=== PATIENT | female | born 1985 | race Caucasian/White ===

== ENCOUNTER 2020-10-12 21:18 | Emergency (ER) | payer OTHER, BC, SELFPAY ==
[2020-10-12 21:23] VITALS: BP 163/76; PULSE 115; RESP 22; TEMP 36.7; O2SAT 95; BMI 48.9
--- NOTE | 2020-10-12 21:23 | ECG_ITS ---
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: : 1985 Requested By: Lester Reese Order Number: [id number] Allison MD: BRIANDA THOMPSON Measurements Intervals [place] Rate: 108 P: 37 VA: 142 QRS: -13 QRSD: 90 T: -3 QT: 320 QTc: 429 Interpretive Statements SINUS TACHYCARDIA LOW QRS VOLTAGE IN PRECORDIAL LEADS [QRS DEFLECTION < 1.0 mV IN CHEST LEADS] MODERATE VOLTAGE CRITERIA FOR LVH, CONSIDER NORMAL VARIANT [MEETS CRITERIA IN ONE OF: R(aVL), S(V1), R(V5), R(V5/V6)+S(V1)] POSSIBLE ANTERIOR MYOCARDIAL INFARCTION [30 ms Q WAVE IN V3/V4, OR R < 0.2 mV IN V4], OF INDETERMINATE AGE No previous ECG available for comparison Electronically Signed On 10-13-2020 20:14:04 CDT by BRIANDA THOMPSON [id number] f
[2020-10-12 21:30] VITALS: BP 149/67; PULSE 119; RESP 18; O2SAT 97
[2020-10-12 22:00] VITALS: BP 141/67; PULSE 109; RESP 18; O2SAT 95
--- NOTE | 2020-10-12 22:29 | W.ED.CHESTPA ---
HPI - Chest Pain General: Chief Complaint: Chest Pain Stated Complaint: PAINS IN CHEST Time Seen by Provider: 10/12/20 22:29 History of Present Illness: HPI narrative: Patient comes in tonight with complaints of chest discomfort starting about 8:00. Patient reports that is lasted about 30 minutes. Patient comes in at this time due to concern that may be related to heart issues. Patient denies any problems with her heart. Patient continues to have her gallbladder. Patient appears well. Patient appears in no acute distress. Patient reports she does have a history of low potassium. Review of Systems General: Reports: 10 or more systems reviewed and unremarkable except in HPI and below Card: Reports: chest pain [facility] ED Female Reproductive History: Date of last menstrual period: 10/10/20 Physical Exam Const: COMMON NORMALS: no acute distress and patient oriented x3 GENERAL APPEARANCE: cooperative HENMT: COMMON NORMALS: normocephalic and Normal external nose present HEAD & SCALP: normal to inspection and normocephalic NOSE: Normal external nose present MOUTH: Normal oral and palatal mucosa present THROAT: posterior oropharynx normal Eye: GENERAL EYE: appearance normal, both eyes and all related structures Neck/C-Spine: COMMON NORMALS: full ROM Chest: COMMONS NORMALS: normal inspection of the chest Resp: COMMON NORMALS: normal respiratory effort EFFORT & INSPECTION: Yes able to speak in complete sentences Cardio: COMMON NORMALS: regular rate and regular rhythm RATE: regular rate RHYTHM: regular rhythm GI: COMMON NORMALS: non-tender : COMMON NORMALS: Yes no CVA tenderness BLADDER/KIDNEY EXAM: Yes no CVA tenderness Back/Pelvis: COMMON NORMALS: no CVA tenderness and thoracic and lumbar spine normal to inspection Extremity: COMMON NORMALS: normal to inspection Neuro: COMMON NORMALS: patient oriented x3 and moves all extremities Psych: COMMON NORMALS: mental status grossly normal and cooperative Skin: COMMON NORMALS: no rashes or lesions noted GENERAL SKIN EXAM: no rashes or lesions noted Course Vital Signs: Vital signs: Vital Signs Temperature 98.1 F 10/12/20 21:23 Pulse Rate 89 10/12/20 23:00 Respiratory Rate 18 10/12/20 23:00 Blood Pressure 115/78 10/12/20 23:00 Pulse Oximetry 96 10/12/20 23:00 MDM - Chest Pain MDM Narrative: Medical decision making narrative: 35-year-old female patient comes in today with chest discomfort on the right side radiating to her back. Patient reports that she has had a history of low potassium causing cramps, patient is also worried that it may be something else going on such as her gallbladder or other heart issues. On exam respirations are even lungs are clear to auscultation. Skin is warm and dry. Vital signs are normal except for some elevation in pulse and respirations. Differential diagnosis includes not limited to ACS, PE, hypokalemia, cholecystitis. CBC was normal, CMP did note some potassium at 2.9 otherwise normal liver enzymes. Troponin and D-dimer both negative. EKG shows some sinus tachycardia. Reviewed exam with patient recommended treatment for her hyperkalemia. Patient was given 40 mEq of potassium in the ER and will be continued on 20 mEq potassium twice a day. Recommended follow-up with primary care or specialist for refills. Patient reported understanding agreed to plan. Patient had previously been on potassium chloride 10 mg 4 times a day. Lab Data: Labs: Lab Results 10/12/20 10/12/20 10/12/20 Range/Units 22:45 22:45 22:45 WBC 10.7 H (4.0-10.0) 10^3/ uL RBC 4.73 (4.1-5.3) 10^6/u L Hgb 12.7 (11.5-15.3) g/dL Hct 39.4 (37.0-47.0) % MCV 83.3 (81-99) fL MCH 26.8 L (28.0-34.0) pg MCHC 32.2 (30.0-36.0) g/dL RDW 14.1 (12.1-15.1) % Plt Count 392 (130-400) 10^3/c mm MPV 11.5 H (7.4-10.4) fL Neut % (Auto) 61.9 % Lymph % (Auto) 28.2 % [place] % (Auto) 7.3 % Eos % (Auto) 1.7 % Baso % (Auto) 0.5 % Neut # (Auto) 6.63 (1.8-7.7) 10^3/u L Lymph # (Auto) 3.0 (0.8-4.8) 10^3/u L [place] # (Auto) 0.8 (0.2-0.9) 10^3/u L Eos # (Auto) 0.2 (0.0-0.8) 10^3/u L Baso # (Auto) 0.1 (0.0-0.1) 10^3/u L Nucleated RBC % (a uto) 0 % Nucleated RBCs # 0.0 /100WBC D-Dimer (0-0.59) ug/mIFE U Sodium 137 (136-145) mmol/L Potassium 2.9 L (3.5-5.1) mmol/L Chloride 93 L (98-107) mmol/L Carbon Dioxide 32 H (22-29) mmol/L Anion Gap 14.9 (5-19) BUN 11 (6-20) mg/dL Creatinine 0.6 (0.5-0.9) mg/dL GFR Calculation 115.1 (90-130) mL/min Glucose 108 (65-115) mg/dL Calculated Osmolal ity 284 L (285-295) mOsm/k g Calcium 8.7 (8.5-10.5) mg/dL Total Bilirubin 0.4 (0.15-1.2) mg/dL AST 13 (0-32) U/L ALT 13 (0-33) U/L Alkaline Phosphata se 51 (35-105) IU/L Troponin T Baselin e 6 (0-10) ng/L Total Protein 7.6 (6.6-8.7) g/dL Albumin 3.9 (3.5-5.2) g/dL Globulin 3.7 (1.3-4.6) g/dL HCG, Qual (Negative) Urine Color (Yellow) Urine Appearance (CLEAR) Urine pH (5-7) Ur Specific Gravit y (1.005-1.030) Urine Protein (Negative) Urine Glucose (UA) (Normal) Urine Ketones (Negative) Urine Blood (Negative) Urine Nitrate (Negative) Urine Bilirubin (Negative) Urine Urobilinogen (Negative) mg/dL Ur Leukocyte Kandis ase (Negative) Urine RBC (0-2) /hpf Urine WBC (0-5) /hpf Ur Squamous Epith Cells (0-5) /hpf Amorphous Sediment Urine Bacteria (NONE) /hpf 10/12/20 10/12/20 10/12/20 Range/Units 22:45 22:45 22:45 WBC (4.0-10.0) 10^3/ uL RBC (4.1-5.3) 10^6/u L Hgb (11.5-15.3) g/dL Hct (37.0-47.0) % MCV (81-99) fL MCH (28.0-34.0) pg MCHC (30.0-36.0) g/dL RDW (12.1-15.1) % Plt Count (130-400) 10^3/c mm MPV (7.4-10.4) fL Neut % (Auto) % Lymph % (Auto) % [place] % (Auto) % Eos % (Auto) % Baso % (Auto) % Neut # (Auto) (1.8-7.7) 10^3/u L Lymph # (Auto) (0.8-4.8) 10^3/u L [place] # (Auto) (0.2-0.9) 10^3/u L Eos # (Auto) (0.0-0.8) 10^3/u L Baso # (Auto) (0.0-0.1) 10^3/u L Nucleated RBC % (a uto) % Nucleated RBCs # /100WBC D-Dimer <= 0.27 (0-0.59) ug/mIFE U Sodium (136-145) mmol/L Potassium (3.5-5.1) mmol/L Chloride (98-107) mmol/L Carbon Dioxide (22-29) mmol/L Anion Gap (5-19) BUN (6-20) mg/dL Creatinine (0.5-0.9) mg/dL GFR Calculation (90-130) mL/min Glucose (65-115) mg/dL Calculated Osmolal ity (285-295) mOsm/k g Calcium (8.5-10.5) mg/dL Total Bilirubin (0.15-1.2) mg/dL AST (0-32) U/L ALT (0-33) U/L Alkaline Phosphata se (35-105) IU/L Troponin T Baselin e (0-10) ng/L Total Protein (6.6-8.7) g/dL Albumin (3.5-5.2) g/dL Globulin (1.3-4.6) g/dL HCG, Qual Negative (Negative) Urine Color Yellow (Yellow) Urine Appearance Clear (CLEAR) Urine pH 7 (5-7) Ur Specific Gravit y 1.015 (1.005-1.030) Urine Protein Trace (Negative) Urine Glucose (UA) Norm (Normal) Urine Ketones Negative (Negative) Urine Blood 2+ H (Negative) Urine Nitrate Negative (Negative) Urine Bilirubin Neg (Negative) Urine Urobilinogen Norm (Negative) mg/dL Ur Leukocyte Kandis ase Negative (Negative) Urine RBC 0-4 H (0-2) /hpf Urine WBC 0-4 H (0-5) /hpf Ur Squamous Epith Cells 0-4 H (0-5) /hpf Amorphous Sediment Not Reportable Urine Bacteria Trace (NONE) /hpf EKG Data^: EKG 1: Attestation: I personally reviewed and interpreted this EKG as follows: (2129, EKG shows a sinus tachycardia. No ST elevation or ectopy is noted. Computer reads low QRS, moderate voltage criteria for LVH, possible anterior LA. No prior EKG at this time is available for comparison.) Discharge Plan Discharge Patient Disposition: Home Clinical Impression: Hypokalemia, Atypical chest pain Condition: Stable Prescriptions: New potassium chloride 20 mEq tablet,ER particles/crystals 20 meq PO BID Qty: 60 RF: 2 Discharge Orders: Discharge ED (Routine); Ordered 10/12/20 Ordered By: Lester Greenberg Referrals: Ayse Hilton MD [Primary Care Provider] - Discharge Diet: Usual diet Discharge Activity: Increase activity as tolerated Patient Instructions: Hypokalemia (ED), Opioid Safety Activity Restrictions/Additional Instructions: Healthy diet and exercise. Follow-up with primary care. Return to the emergency department for new concerns. Coding Level of Care Code ED Bobbin Sorter for Chg Fwd Exam Comprehensive
[2020-10-12 22:30] VITALS: BP 135/99; PULSE 95; RESP 15; O2SAT 95
[2020-10-12 22:59] LABS: Basophils # 0.1 10^3/uL (0.0-0.1); Basophils % 0.5 %; Eosinophils # 0.2 10^3/uL (0.0-0.8); Eosinophils % 1.7 %; Hematocrit 39.4 % (37.0-47.0); Hemoglobin 12.7 g/dL (11.5-15.3); Lymphocytes % 28.2 %; Mean Corpuscular HGB Conc 32.2 g/dL (30.0-36.0); Mean Corpuscular Hemoglobin 26.8 pg (28.0-34.0); Mean Corpuscular Volume 83.3 fL (81-99); Mean Platelet Volume 11.5 fL (7.4-10.4); Monocytes # 0.8 10^3/uL (0.2-0.9); Monocytes % 7.3 %; Neutrophils # 6.63 10^3/uL (1.8-7.7); Neutrophils % 61.9 %; Nucleated Red Blood Cells % 0 %; Platelet Count 392 10^3/cmm (130-400); Red Blood Count 4.73 10^6/uL (4.1-5.3); Red Cell Distribution Width 14.1 % (12.1-15.1); White Blood Count 10.7 10^3/uL (4.0-10.0)
[2020-10-12 23:00] VITALS: BP 115/78; PULSE 89; RESP 18; O2SAT 96
[2020-10-12 23:07] LABS: D Dimer <= 0.27 ug/mIFEU (0-0.59)
[2020-10-12 23:16] LABS: HCG, Serum Qual Negative (Negative)
[2020-10-12 23:17] LABS: Add Urine Microscopic? YES; Bilirubin Urine Neg (Negative); Blood Urine 2+ (Negative); Glucose Urine UA Norm (Normal); Ketones Urine Negative (Negative); Leukocyte Esterase Urine Negative (Negative); Nitrate Urine Negative (Negative); Protein Urine Trace (Negative); Specific Gravity, Urine 1.015 (1.005-1.030); Urine Appearance Clear (CLEAR); Urine Color Yellow (Yellow); Urobilinogen Urine Norm (Negative); pH Urine 7 (5-7)
[2020-10-12 23:18] LABS: Add Urine Culture? No; Bacteria Urine TRACE /hpf; RBC Urine 0-4 /hpf (0-2); Squamous Epithelial Cell Urine 0-4 /hpf (0-5); WBC Urine 0-4 /hpf (0-5)
[2020-10-12 23:21] LABS: Troponin(5th) Baseline 6 ng/L (0-10)
[2020-10-12 23:22] LABS: Alanine Aminotransferase 13 U/L (0-33); Albumin Level 3.9 g/dL (3.5-5.2); Alkaline Phosphatase 51 IU/L (35-105); Anion Gap 14.9 (5-19); Aspartate Amino Transferase 13 U/L (0-32); Blood Urea Nitrogen 11 mg/dL (6-20); Calcium 8.7 mg/dL (8.5-10.5); Carbon Dioxide 32 mmol/L (22-29); Chloride 93 mmol/L (98-107); Globulin 3.7 g/dL (1.3-4.6); Glomerular Filtration Rate 115.1 mL/min (90-130); Glucose 108 mg/dL (65-115); Osmolality Calculated 284 mOsm/kg (285-295); Sodium 137 mmol/L (136-145); Total Bilirubin 0.4 mg/dL (0.15-1.2); Total Protein 7.6 g/dL (6.6-8.7)
[2020-10-12 23:26] LABS: Potassium 2.9 mmol/L (3.5-5.1)
[2020-10-12 23:45] VITALS: BP 119/83; PULSE 92; RESP 18; O2SAT 99
[2020-10-12] MEDS: potassium chloride ER 20 mEq Tablet 40 MEQ PO (23:45)
== END 2020-10-12 23:48 | disposition home or self-care (01) ==
PROVIDERS: Emergency Provider Nurse Practitioner Family; PCP Family Medicine
DX: E87.5 Hyperkalemia (principal); R07.89 Other chest pain
CPT/HCPCS: 80053; 81001; 84484; 84703; 85025; 85378; 93005; 99283

== ENCOUNTER 2021-04-07 | Emergency (ER) | payer OTHER, BC, SELFPAY ==
[2021-04-07 00:21] VITALS: BP 152/81; PULSE 108; RESP 18; TEMP 36.7; O2SAT 97; BMI 51.6
[2021-04-07 02:27] LABS: Add Urine Microscopic? YES; Bilirubin Urine 1+ (Negative); Blood Urine Neg (Negative); Glucose Urine UA Norm (Normal); Ketones Urine Negative (Negative); Leukocyte Esterase Urine Trace (Negative); Nitrate Urine Negative (Negative); Protein Urine Trace (Negative); Urine Appearance SL Hazy (CLEAR); Urine Color Yellow (Yellow); Urobilinogen Urine 4 mg/dL (Negative); pH Urine 7 (5-7)
[2021-04-07 02:37] LABS: Add Urine Culture? No; Bacteria Urine 2+ /hpf; Mucus Urine 2+ /hpf; RBC Urine 0-4 /hpf (0-2); Squamous Epithelial Cell Urine 15-25 /hpf (0-5); WBC Urine 0-4 /hpf (0-5)
--- NOTE | 2021-04-07 05:04 | ECG_ITS ---
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 Measurements Intervals [place] Rate: 95 P: 48 WI: 147 QRS: -2 QRSD: 95 T: 8 QT: 344 QTc: 433 Interpretive Statements SINUS RHYTHM MODERATE VOLTAGE CRITERIA FOR LVH, CONSIDER NORMAL VARIANT [MEETS CRITERIA IN ONE OF: R(aVL), S(V1), R(V5), R(V5/V6)+S(V1)] POSSIBLE ANTERIOR MYOCARDIAL INFARCTION , PROBABLY OLD [30 ms Q WAVE IN V3/V4, OR R < 0.2 mV IN V4] Compared to ECG 10/12/2020 21:29:55 Sinus tachycardia no longer present Myocardial infarct finding still present Electronically Signed On 04-07-2021 23:53:10 CROP RANCH HAND by Marie Joe M.D. [id number]
[2021-04-07 05:05] VITALS: BP 107/60; PULSE 88; RESP 16; O2SAT 98
[2021-04-07] MEDS: sodium chloride 0.9% 1,000 ML 999 ML IV ×2 (05:10→07:05)
[2021-04-07] MEDS: ondansetron 2 mg/ML SDV 2 mL 4 MG IVP (05:10)
[2021-04-07 05:29] LABS: Albumin Level 3.7 g/dL (3.5-5.2); Alkaline Phosphatase 55 IU/L (35-105); Blood Urea Nitrogen 12 mg/dL (6-20); Calcium 7.9 mg/dL (8.5-10.5); Carbon Dioxide 26 mmol/L (22-29); Chloride 92 mmol/L (98-107); Globulin 3.2 g/dL (1.3-4.6); Glomerular Filtration Rate 141.2 mL/min (90-130); Glucose 107 mg/dL (65-115); Lipase 15 U/L (13-60); Osmolality Calculated 276 mOsm/kg (285-295); Sodium 133 mmol/L (136-145); Total Bilirubin 0.7 mg/dL (0.15-1.2); Total Protein 6.9 g/dL (6.6-8.7)
[2021-04-07 05:30] LABS: Anion Gap 18.8 (5-19)
[2021-04-07 05:31] LABS: Alanine Aminotransferase 11 U/L (0-33); Aspartate Amino Transferase 27 U/L (0-32); Potassium 3.8 mmol/L (3.5-5.1)
--- NOTE | 2021-04-07 05:32 | W.ED.NAVMDI ---
HPI - Nausea/Vomiting/Diarrhea General: Chief complaint: Nausea/Vomiting/Diarrhea Stated complaint: Passed Out\N\Diahrea Time Seen by Provider: 04/07/21 04:47 History of Present Illness: HPI Narrative: 36-year-old female who says that yesterday, after eating fast food, she began to have diarrhea. She vomited a couple times as well. She has had persistent nausea with cramping belly pain. With one of her episodes of diarrhea, she passed out at home. says she was out for several seconds. She does not remember. She denies significant chest pain. She has had problems with low potassium in the past MD elicited complaint: nausea, vomiting, diarrhea and abdominal pain Pertinent past history: other Onset (ago): hour(s) Description of vomiting: food contents and watery Description of diarrhea: watery Associated nausea: Yes Associated abdominal pain: Yes Location of pain: Diffuse Radiation: diffuse Pain consistency: intermittent Quality: cramping Exacerbating factors: none Relieving factors: none Context: possible food poisoning (Possibly) Associated symtoms: Reports nausea and syncope; Denies altered mental status, change in vision, chest pain, fevers/chills, rash or short of breath Review of Systems Const: Denies: fever(s) or chills Eyes: Denies: change in vision Card: Reports: syncope; Denies: chest pain GI: Reports: nausea [facility] ED Female Reproductive History: Date of last menstrual period: 03/19/21 Physical Exam Const: EXAM LIMITATIONS: no altered mental status GENERAL APPEARANCE: cooperative and ill appearing (Mildly) HENMT: COMMON NORMALS: normocephalic HEAD & SCALP: normocephalic Eye: COMMON NORMALS: Equal, round and reactive pupils present and EOMs intact bilaterally PUPIL: Yes Equal, round and reactive pupils present Chest: COMMONS NORMALS: normal inspection of the chest Resp: COMMON NORMALS: normal respiratory effort, No use of accessory muscles and clear to auscultation bilaterally AUSCULTATION: clear to auscultation bilaterally Cardio: COMMON NORMALS: regular rate and regular rhythm RATE: regular rate RHYTHM: regular rhythm GI: COMMON NORMALS: Normal to inspection, nondistended, normoactive bowel sounds present Course Vital Signs: Vital signs: Vital Signs Temperature 98.1 F 04/07/21 00:21 Pulse Rate 88 04/07/21 05:05 Respiratory Rate 16 04/07/21 05:05 Blood Pressure 107/60 04/07/21 05:05 Pulse Oximetry 98 04/07/21 05:05 MDM - Nausea/Vomiting/Diarrhea MDM Narrative Medical decision making narrative: Lena has gastroenteritis type symptoms. WBC of 5.8. Sodium 133. Other labs benign here in she is positive by PCR for COVID-19. she received IV fluid bolus, antiemetics. She'll be allowed home. Since her PCR turned positive, would consider monoclonal antibody as an outpatient. Lab Data Result diagrams: 04/07/21 05:30 04/07/21 05:00 Labs: Lab Results 04/07/21 04/07/21 04/07/21 02:10 05:00 05:00 WBC Cancelled Corrected WBC Cancelled RBC Cancelled Hgb Cancelled Hct Cancelled MCV Cancelled MCH Cancelled MCHC Cancelled RDW Cancelled Plt Count Cancelled MPV Cancelled Gran % Cancelled Neut % (Auto) Cancelled Lymph % (Auto) Cancelled [place] % (Auto) Cancelled Eos % (Auto) Cancelled Baso % (Auto) Cancelled Neut # (Auto) Cancelled Lymph # (Auto) Cancelled [place] # (Auto) Cancelled Eos # (Auto) Cancelled Baso # (Auto) Cancelled Absolute Gran (auto) Cancelled Nucleated RBC % (auto) Cancelled Nucleated RBCs # Cancelled Sodium 133 mmol/L L mmol/L (136-145) Potassium 3.8 mmol/L mmol/L (3.5-5.1) Chloride 92 mmol/L L mmol/L (98-107) Carbon Dioxide 26 mmol/L mmol/L (22-29) Anion Gap 18.8 (5-19) BUN 12 mg/dL mg/dL (6-20) Creatinine 0.5 mg/dL mg/dL (0.5-0.9) GFR Calculation 141.2 mL/min H mL/min (90-130) Glucose 107 mg/dL mg/dL (65-115) Calculated Osmolality 276 mOsm/kg L mOsm/kg (285-295) Calcium 7.9 mg/dL L mg/dL (8.5-10.5) Total Bilirubin 0.7 mg/dL mg/dL (0.15-1.2) AST 27 U/L U/L (0-32) ALT 11 U/L U/L (0-33) Alkaline Phosphatase 55 IU/L IU/L (35-105) Troponin T Gen 5 ng/L Total Protein 6.9 g/dL g/dL (6.6-8.7) Albumin 3.7 g/dL g/dL (3.5-5.2) Globulin 3.2 g/dL g/dL (1.3-4.6) Lipase 15 U/L U/L (13-60) HCG, Qual Urine Color Yellow (Yellow) Urine Appearance Sl hazy (CLEAR) Urine pH 7 (5-7) Ur Specific [place] 1.010 (1.005-1.030) Urine Protein Trace (Negative) Urine Glucose (UA) Norm (Normal) Urine Ketones Negative (Negative) Urine Blood Neg (Negative) Urine Nitrate Negative (Negative) Urine Bilirubin 1+ H (Negative) Urine Urobilinogen 4 mg/dL H mg/dL (Negative) Ur Leukocyte Esterase Trace H (Negative) Urine RBC 0-4 /hpf H /hpf (0-2) Urine WBC 0-4 /hpf H /hpf (0-5) Ur Squamous Epith Cells 15-25 /hpf H /hpf (0-5) Triple Phos Crystals 5-10 /hpf H /hpf Amorphous Sediment Not Reportable Urine Bacteria 2+ /hpf H /hpf (NONE) Urine Mucus 2+ /hpf /hpf Coronavirus 229E (PCR) SARS-CoV-2 (PCR) 04/07/21 04/07/21 04/07/21 05:00 05:15 05:30 WBC Corrected WBC RBC Hgb Hct MCV MCH MCHC RDW Plt Count MPV Gran % Neut % (Auto) Lymph % (Auto) [place] % (Auto) Eos % (Auto) Baso % (Auto) Neut # (Auto) Lymph # (Auto) [place] # (Auto) Eos # (Auto) Baso # (Auto) Absolute Gran (auto) Nucleated RBC % (auto) Nucleated RBCs # Sodium Potassium Chloride Carbon Dioxide Anion Gap BUN Creatinine GFR Calculation Glucose Calculated Osmolality Calcium Total Bilirubin AST ALT Alkaline Phosphatase Troponin T Gen 5 ng/L 6 ng/L ng/L (0-10) Total Protein Albumin Globulin Lipase HCG, Qual Negative (Negative) Urine Color Urine Appearance Urine pH Ur Specific [place] Urine Protein Urine Glucose (UA) Urine Ketones Urine Blood Urine Nitrate Urine Bilirubin Urine Urobilinogen Ur Leukocyte Esterase Urine RBC Urine WBC Ur Squamous Epith Cells Triple Phos Crystals Amorphous Sediment Urine Bacteria Urine Mucus Coronavirus 229E (PCR) Not detected (NOT DETECT) SARS-CoV-2 (PCR) Detected A (NOT DETECT) 04/07/21 05:30 WBC 5.8 10^3/uL 10^3/uL (4.0-10.0) Corrected WBC RBC 4.41 10^6/uL 10^6/uL (4.1-5.3) Hgb 12.0 g/dL g/dL (11.5-15.3) Hct 36.0 % L % (37.0-47.0) MCV 81.6 fl fl (81-99) MCH 27.2 pg L pg (28.0-34.0) MCHC 33.3 g/dL g/dL (30.0-36.0) RDW 14.3 % % (12.1-15.1) Plt Count 294 10^3/cmm 10^3/cmm (130-400) MPV 10.8 fL H fL (7.4-10.4) Gran % Neut % (Auto) 81.3 % % Lymph % (Auto) 13.1 % % [place] % (Auto) 4.5 % % Eos % (Auto) 0.3 % % Baso % (Auto) 0.3 % % Neut # (Auto) 4.73 10^3/uL 10^3/uL (1.8-7.7) Lymph # (Auto) 0.8 10^3/uL 10^3/uL (0.8-4.8) [place] # (Auto) 0.3 10^3/uL 10^3/uL (0.2-0.9) Eos # (Auto) 0.0 10^3/uL 10^3/uL (0.0-0.8) Baso # (Auto) 0.0 10^3/uL 10^3/uL (0.0-0.1) Absolute Gran (auto) Nucleated RBC % (auto) 0 % % Nucleated RBCs # 0.0 /100WBC /100WBC Sodium Potassium Chloride Carbon Dioxide Anion Gap BUN Creatinine GFR Calculation Glucose Calculated Osmolality Calcium Total Bilirubin AST ALT Alkaline Phosphatase Troponin T Gen 5 ng/L Total Protein Albumin Globulin Lipase HCG, Qual Urine Color Urine Appearance Urine pH Ur Specific [place] Urine Protein Urine Glucose (UA) Urine Ketones Urine Blood Urine Nitrate Urine Bilirubin Urine Urobilinogen Ur Leukocyte Esterase Urine RBC Urine WBC Ur Squamous Epith Cells Triple Phos Crystals Amorphous Sediment Urine Bacteria Urine Mucus Coronavirus 229E (PCR) SARS-CoV-2 (PCR) Discharge Plan Discharge Patient Disposition: Home Clinical Impression: Gastroenteritis Condition: Stable Prescriptions: New Zofran 4 mg tablet 4 mg PO Q6H PRN (Reason: nausea and vomiting) Qty: 10 0RF No Action potassium chloride 20 mEq tablet,ER particles/crystals 20 meq PO BID Qty: 60 2RF Discharge Orders: Discharge ED (Routine); Ordered 04/07/21 Ordered By: Dakota Luna Other Ambulatory Orders: Request for MCA (Routine) Timeframe: 1 Day Facility: [facility] - Location: Outpatient [facility] Services Ordered By: Dakota Luna Referrals: Ayse Hilton MD [Primary Care Provider] - 1-3 days Discharge Diet: Advance as tolerated Patient Instructions: Gastroenteritis (ED) Activity Restrictions/Additional Instructions: Plenty of liquids and rest. Your COVID-19 test will be resulted within a couple of hours. You will get a call if it is positive. Return for worsening vomiting or diarrhea despite treatment, fever greater than 100, shortness of breath, any other concerning symptoms. Coding Level of Care Code ED Clay Transporter for Chg Fwd Exam Detailed
[2021-04-07 05:35] LABS: Basophils % 0.3 %; Eosinophils % 0.3 %; Lymphocytes # 0.8 10^3/uL (0.8-4.8); Lymphocytes % 13.1 %; Mean Corpuscular HGB Conc 33.3 g/dL (30.0-36.0); Mean Corpuscular Hemoglobin 27.2 pg (28.0-34.0); Mean Corpuscular Volume 81.6 fl (81-99); Mean Platelet Volume 10.8 fL (7.4-10.4); Monocytes # 0.3 10^3/uL (0.2-0.9); Monocytes % 4.5 %; Neutrophils # 4.73 10^3/uL (1.8-7.7); Neutrophils % 81.3 %; Nucleated Red Blood Cells % 0 %; Platelet Count 294 10^3/cmm (130-400); Red Blood Count 4.41 10^6/uL (4.1-5.3); Red Cell Distribution Width 14.3 % (12.1-15.1); White Blood Count 5.8 10^3/uL (4.0-10.0)
[2021-04-07 05:43] LABS: Troponin T (5th) Once 6 ng/L (0-10)
[2021-04-07 05:46] LABS: HCG, Serum Qual Negative (Negative)
[2021-04-07 08:08] LABS: Adenovirus Not Detected (NOT DETECT); Chlamydia Pneumoniae Not Detected (NOT DETECT); Coronavirus 229E,HKU1,NL63,OC4 Not Detected (NOT DETECT); Human Metapneumovirus Not Detected (NOT DETECT); Human Rhinovirus/Enterovirus Not Detected (NOT DETECT); Influenza A Not Detected (NOT DETECT); Influenza A H1 Not Detected (NOT DETECT); Influenza A H1-2009 Not Detected (NOT DETECT); Influenza A H3 Not Detected (NOT DETECT); Influenza B Not Detected (NOT DETECT); Mycoplasma Pneumoniae Not Detected (NOT DETECT); Parainfluenza Virus Type 1 Not Detected (NOT DETECT); Parainfluenza Virus Type 2 Not Detected (NOT DETECT); Parainfluenza Virus Type 3 Not Detected (NOT DETECT); Parainfluenza Virus Type 4 Not Detected (NOT DETECT); Respiratory Syncytial Virus A Not Detected (NOT DETECT); Respiratory Syncytial Virus B Not Detected (NOT DETECT); SARS-COV-2 Detected (NOT DETECT)
--- NOTE | 2021-04-07 12:16 | PC.NURSE ---
Called and informed patient of her COVID positive status. She is aware.
== END 2021-04-07 08:05 | disposition home or self-care (01) ==
PROVIDERS: Physician Assistant; Emergency Provider Emergency Medicine; PCP Family Medicine
DX: K52.9 Noninfective gastroenteritis and colitis, unspecified (principal); U07.1 COVID-19
CPT/HCPCS: 36415; 80053; 81001; 83690; 84484; 84703; 85025; 87635; 93005; 96361; 96374; 99284; J2405; J7030

== ENCOUNTER → 2021-06-17 09:21 | Outpatient (BNVA) | payer OTHER, BC, SELFPAY | PROVIDERS: Visit Provider Family Medicine | DX: L81.9 Disorder of pigmentation, unspecified (principal) | CPT/HCPCS: 88304; 88305 ==

== ENCOUNTER → 2021-07-03 09:53 | Outpatient (BNVA) | payer OTHER, BC, SELFPAY | PROVIDERS: PCP Family Medicine; Visit Provider Family Medicine | DX: Z01.419 Encounter for gynecological examination (general) (routine) without abnormal findings (principal) | CPT/HCPCS: 87624 ==

== ENCOUNTER → 2021-12-12 10:58 | Outpatient (BNVA) | payer OTHER, BC, MEDICAID, SELFPAY | PROVIDERS: PCP Family Medicine; Visit Provider Registered Nurse Neonatal Intensive Care | DX: J02.0 Streptococcal pharyngitis (principal) | CPT/HCPCS: 87400; 87880 ==

== ENCOUNTER 2022-01-06 00:47 | Outpatient (CLI) | payer OTHER, BC, MEDICAID, SELFPAY ==
[2022-01-06 02:07] LABS: Alanine Aminotransferase 13 U/L (0-33); Alkaline Phosphatase 55 U/L (35-105); Anion Gap 14.8 (5-19); Aspartate Amino Transferase 14 U/L (0-32); Blood Urea Nitrogen 11 mg/dL (6-20); Calcium 8.8 mg/dL (8.5-10.5); Carbon Dioxide 33 mmol/L (22-29); Chloride 90 mmol/L (98-107); Glomerular Filtration Rate 113.8 mL/min (90-130); Glucose 91 mg/dL (65-115); Magnesium 1.4 mg/dL (1.7-2.3); Osmolality Calculated 279 mOsm/kg (285-295); Sodium 135 mmol/L (136-145); Total Bilirubin 0.5 mg/dL (0.15-1.2)
[2022-01-06 04:01] LABS: Potassium 2.8 mmol/L (3.5-5.1)
== END 2022-01-06 00:48 | disposition home or self-care (01) ==
LOC: GILAB 00:51 → LAB 00:52
PROVIDERS: PCP Family Medicine; Visit Provider Family Medicine
DX: E87.6 Hypokalemia (principal)
CPT/HCPCS: 80053; 83735

== ENCOUNTER 2022-08-01 03:20 | Outpatient (CLI) | payer OTHER, BC, MEDICAID, SELFPAY ==
[2022-08-01 03:55] LABS: Anion Gap 15.2 (5-19); Blood Urea Nitrogen 11 mg/dL (6-20); Calcium 8.8 mg/dL (8.5-10.5); Carbon Dioxide 30 mmol/L (22-29); Chloride 92 mmol/L (98-107); Glomerular Filtration Rate 95.2 mL/min (90-130); Glucose 147 mg/dL (65-115); Osmolality Calculated 282 mOsm/kg (285-295); Sodium 135 mmol/L (136-145)
[2022-08-01 04:35] LABS: Potassium 2.2 mmol/L (3.5-5.1)
== END 2022-08-01 03:21 | disposition home or self-care (01) ==
PROVIDERS: PCP Family Medicine; Visit Provider Emergency Medicine
DX: E87.6 Hypokalemia (principal)
CPT/HCPCS: 80048

== ENCOUNTER 2022-09-25 01:43 | Emergency (ER) | payer OTHER, BC, MEDICAID, SELFPAY ==
[2022-09-25] VITALS (13 sets, daily range): BP systolic 122–183; BP diastolic 57–132; PULSE 104–118; RESP 16–40; O2SAT 35–99; BMI 51.6
--- NOTE | 2022-09-25 01:46 | USR_ITS ---
PROCEDURE INFORMATION: Exam: US First Trimester, Transabdominal and US , Transvaginal Exam date and time: 09/25/2022 2:22 AMThe Age: 37 years old Clinical indication: complicated by abdominal or pelvic pain; Generalized abdominal pain; Second trimester (14 weeks 0 days to 27 weeks 6 days); Gestational age or lmp: 14w 4d; ; Patient HX: Heavy vaginal bleeding x 7 hours. Pelvic pain and cramping. TECHNIQUE: Imaging protocol: Real-time transabdominal obstetrical ultrasound of the maternal pelvis and a first trimester , less than 14 weeks 0 days, with image documentation. Transvaginal imaging was used for better evaluation of the fetus, adnexa, and/or cervix. COMPARISON: US gall bladder [id number] 06/17/2016 7:18 AM FINDINGS: Gestation: Initial transabdominal imaging demonstrates an intrauterine gestation with a heart rate measuring 189 bpm. Patient then completed her urinary bladder in the bathroom and reportedly passed a clot. Subsequent endovascular scanning demonstrates no evidence for an intrauterine gestation. MATERNAL: Uterus: 14.5 x 8.7 x 8.5 cm. Cervix: 5.1 cm. Right ovary/adnexa: 3.1 x 2.2 x 1.5 cm. Unremarkable ovary. Arterial waveforms demonstrated on spectral pulse-wave duplex interrogation. Left ovary/adnexa: 3.2 x 1.8 x 3.0 cm Unremarkable ovary. Arterial waveforms demonstrated on spectral pulse-wave duplex interrogation. Intraperitoneal space: No intraperitoneal free fluid. US/US OB <=14 wk fetus w transvag IMPRESSION: Findings compatible with in progress, with loss of an intrauterine gestation during the examination, between transabdominal and transvaginal scans.
--- NOTE | 2022-09-25 01:54 | W.ED.PREGNAN ---
HPI - General: Chief complaint: Abdominal Pain Stated complaint: abd pain bleeing/ 14 weeks preg Time Seen by Provider: 09/25/22 01:53 History of Present Illness: 37-year-old female comes in today with lower abdominal pain and blood when she wipes after urinating. Patient reports difficulty getting comfortable. Patient is approximately 14 weeks . This is patient's third with 2 prior live births. Patient denies any miscarriages or abortions. Patient has a medical history of low potassium. Patient takes routine magnesium and vitamins. Patient reports no prior abdominal surgeries. 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 Complaint: vaginal bleeding Onset (ago): hour(s) Pain Consistency: intermittent (Since 1:00) Location: pelvis Severity: moderate Severity scale (1-10): 8 Quality: Cramping Radiation: pelvis Relieving factors: urination Exacerbating factors: movement Vaginal discharge: none Vaginal bleeding: light (When she wipes after urinating) Date of Last Menstrual Period: 06/27/22 Patient : Yes Expected Date of Delivery: 03/26/23 Number of Weeks : 14 OB History - Current : no complications OB History - Previous Pregnancies: no complications care: followed by OB Associated symptoms: Reports abdominal pain Related Data: : 3 Para: 2 Total number of abortions (spontaneous and elective): 0 Review of Systems General: Reports: 10 or more systems reviewed and unremarkable except in HPI and below GI: Reports: abdominal pain : Reports: urinary frequency, urinary urgency and hematuria PFSH ED PFSH: Medical History COVID-19 Hypokalemia Surgical History History of x 2 Family History Grandfather Cancer Pancreatic Unknown Cancer Colon - uncle Father Stroke Diabetes Social History Smoking and tobacco status: never smoked Female Reproductive History: Date of last menstrual period: 06/27/22 : 3 Physical Exam Const: COMMON NORMALS: alert HENMT: COMMON NORMALS: normocephalic HEAD & SCALP: normocephalic Neck/C-Spine: COMMON NORMALS: full ROM Resp: COMMON NORMALS: normal respiratory effort and clear to auscultation bilaterally AUSCULTATION: clear to auscultation bilaterally Cardio: COMMON NORMALS: regular rate and regular rhythm RATE: regular rate RHYTHM: regular rhythm GI: COMMON NORMALS: Soft to palpation INSPECTION: Yes normal to inspection AUSCULTATION: Yes normoactive bowel sounds PALPATION: Yes Soft to palpation, No Tenderness to palpation present (GI) (No abdominal tenderness) and No Guarding due to palpation present (GI) Extremity: COMMON NORMALS: normal to inspection Neuro: SENSORIUM/ORIENTATION: Yes alert Skin: COMMON NORMALS: turgor normal GENERAL SKIN EXAM: turgor normal Procedures Perimortem Number of Weeks : 14 Course Vital Signs: Vital signs: Vital Signs Pulse Rate 117 H 09/25/22 01:51 Respiratory Rate 22 H 09/25/22 02:08 Pulse Oximetry 95 09/25/22 02:08 Oxygen Delivery Me thod Room Air 09/25/22 01:51 MDM - OB/Uterine Contractions Medical Decision Making 37-year-old female comes in today with complaints of lower abdominal pain and blood when she wipes after urinating. Patient also reports urinary frequency and urgency. Patient appears in moderate to severe pain. Patient appears nauseous. Patient is about 14 weeks . Vital signs are normal except for elevated blood pressure. Differential diagnosis includes cystitis, threatened miscarriage, renal calculi, spontaneous miscarriage, appendicitis. Lab Data 09/25/22 01:58 09/25/22 01:58 Laboratory Results WBC 20.5 10^3/uL (4.0-10.0) H 09/25/22 01:58 RBC 4.50 10^6/uL (4.1-5.3) 09/25/22 01:58 Hgb 12.1 g/dL (11.5-15.3) 09/25/22 01:58 Hct 36.5 % (37.0-47.0) L 09/25/22 01:58 MCV 81.1 fl (81-99) 09/25/22 01:58 MCH 26.9 pg (28.0-34.0) L 09/25/22 01:58 MCHC 33.2 g/dL (30.0-36.0) 09/25/22 01:58 RDW 15.4 % (12.1-15.1) H 09/25/22 01:58 Plt Count 302 10^3/cmm (130-400) 09/25/22 01:58 MPV 11.3 fL (7.4-10.4) H 09/25/22 01:58 Neut % (Auto) 83.5 % 09/25/22 01:58 Lymph % (Auto) 10.3 % 09/25/22 01:58 Gonzales % (Auto) 5.1 % 09/25/22 01:58 Eos % (Auto) 0.5 % 09/25/22 01:58 Baso % (Auto) 0.2 % 09/25/22 01:58 Neut # (Auto) 17.10 10^3/uL (1.8-7.7) H 09/25/22 01:58 Lymph # (Auto) 2.1 10^3/uL (0.8-4.8) 09/25/22 01:58 Gonzales # (Auto) 1.0 10^3/uL (0.2-0.9) H 09/25/22 01:58 Eos # (Auto) 0.1 10^3/uL (0.0-0.8) 09/25/22 01:58 Baso # (Auto) 0.0 10^3/uL (0.0-0.1) 09/25/22 01:58 Nucleated RBC % (auto) 0 % 09/25/22 01:58 Nucleated RBCs # 0.0 /100WBC 09/25/22 01:58 Carbon Dioxide 26 mmol/L (22-29) 09/25/22 01:58 Anion Gap 18.7 (5-19) 09/25/22 01:58 Creatinine 0.5 mg/dL (0.5-0.9) 09/25/22 01:58 Calcium 9.9 mg/dL (8.5-10.5) 09/25/22 01:58 Total Bilirubin 0.8 mg/dL (0.15-1.2) 09/25/22 01:58 AST 20 U/L (0-32) 09/25/22 01:58 ALT 17 U/L (0-33) 09/25/22 01:58 Alkaline Phosphatase 53 U/L (35-105) 09/25/22 01:58 Total Protein 7.2 g/dL (6.6-8.7) 09/25/22 01:58 Albumin 3.9 g/dL (3.5-5.2) 09/25/22 01:58 Globulin 3.3 g/dL (1.3-4.6) 09/25/22 01:58 Discharge Plan Discharge Condition: Stable Prescriptions: No Action lidocaine-epinephrine 2 %-1:100,000 solution 2 ml SUBCUT ONCE PRN (Reason: anesthesia) Qty: 1 0RF potassium chloride 10 mEq tablet,ER particles/crystals 30 meq PO DAILY Qty: 90 0RF magnesium oxide 500 mg capsule 500 mg PO DAILY Qty: 30 0RF Referrals: Kenyatta Middleton DO [Primary Care Provider] - Coding Level of Care Code ED Buffing Machine Operator Semiautomatic for Sharmaine Dotson
[2022-09-25 02:08] LABS: Basophils % 0.2 %; Eosinophils # 0.1 10^3/uL (0.0-0.8); Eosinophils % 0.5 %; Hematocrit 36.5 % (37.0-47.0); Hemoglobin 12.1 g/dL (11.5-15.3); Lymphocytes # 2.1 10^3/uL (0.8-4.8); Lymphocytes % 10.3 %; Mean Corpuscular HGB Conc 33.2 g/dL (30.0-36.0); Mean Corpuscular Hemoglobin 26.9 pg (28.0-34.0); Mean Corpuscular Volume 81.1 fl (81-99); Mean Platelet Volume 11.3 fL (7.4-10.4); Monocytes % 5.1 %; Neutrophils % 83.5 %; Nucleated Red Blood Cells % 0 %; Platelet Count 302 10^3/cmm (130-400); Red Cell Distribution Width 15.4 % (12.1-15.1); White Blood Count 20.5 10^3/uL (4.0-10.0)
[2022-09-25] MEDS: fentaNYL 50 mcg/mL INJ 2mL 100 MCG IVP (02:08)
[2022-09-25 02:25] LABS: Alanine Aminotransferase 17 U/L (0-33); Albumin Level 3.9 g/dL (3.5-5.2); Alkaline Phosphatase 53 U/L (35-105); Anion Gap 18.7 (5-19); Aspartate Amino Transferase 20 U/L (0-32); Blood Urea Nitrogen 5 mg/dL (6-20); Calcium 9.9 mg/dL (8.5-10.5); Carbon Dioxide 26 mmol/L (22-29); Chloride 92 mmol/L (98-107); Globulin 3.3 g/dL (1.3-4.6); Glomerular Filtration Rate 140.4 mL/min (90-130); Glucose 137 mg/dL (65-115); Osmolality Calculated 277 mOsm/kg (285-295); Sodium 134 mmol/L (136-145); Total Bilirubin 0.8 mg/dL (0.15-1.2); Total Protein 7.2 g/dL (6.6-8.7)
[2022-09-25] MEDS: sodium chloride 0.9% 500 ML 999 ML IV (02:32)
[2022-09-25 02:40] LABS: Potassium 2.7 mmol/L (3.5-5.1)
--- NOTE | 2022-09-25 02:40 | PC.NURSE ---
Pt to bathroom to provide urine sample and urinate before intra-vaginal ultrasound. Pt notified this RN upon exiting the bathroom pt had passed large clot with lots of blood while using the restroom. Provider notified, no new orders received.
[2022-09-25 03:12] LABS: Urine Color Yellow (Yellow)
[2022-09-25 03:13] LABS: Add Urine Culture? Yes; Add Urine Microscopic? YES; Bacteria Urine 1+ /hpf; Bilirubin Urine Neg (Negative); Blood Urine 3+ (Negative); Glucose Urine UA Norm (Normal); Ketones Urine 1+ (Negative); Leukocyte Esterase Urine 1+ (Negative); Mucus Urine 2+ /hpf; Nitrate Urine Negative (Negative); Protein Urine Neg (Negative); Specific Gravity, Urine 1.015 (1.005-1.030); Squamous Epithelial Cell Urine 0-4 /hpf (0-5); Urine Appearance SL Hazy (CLEAR); Urobilinogen Urine Neg (Negative); pH Urine 6.5 (5-7)
[2022-09-25] MEDS: miSOPROStol 200 mcg Tablet 800 MCG PR (03:29)
[2022-09-25] MEDS: HYDROmorphone 1 mg/mL INJ 1 mL IVP ×2 (03:29→05:52)
[2022-09-25] MEDS: ondansetron 2 mg/ML SDV 2 mL 4 MG IVP (04:30)
[2022-09-25] MEDS: HYDROcodone-acetaminophen 7.5-325 mg Tablet 1 TAB PO (04:38)
--- NOTE | 2022-09-25 05:17 | PC.NURSE ---
RN into room to assess bleeding and pt. Pt has saturated 1 melissa completely with 4 quarter sized clots in melissa. Pt requested to clean perineal region and change clothing. Upon wiping, bright red blood on wipe found with 2 quarter sized clots on wipe. 2nd wipe remained clot free with red blood. Pt ambulate to restroom without difficulty. Pt reported urinating without difficulty. Pt c/o feeling ceja and weak. Pt still in pain but feels as if weakness may be due to pain medication. RN informed MD. Pt resting in bed at this time. Will continue to monitor.
== END 2022-09-25 06:13 | disposition home or self-care (01) ==
PROVIDERS: Nurse Practitioner Family; Emergency Provider Emergency Medicine; PCP Family Medicine
DX: O03.9 Complete or unspecified spontaneous abortion without complication (principal)
CPT/HCPCS: 76801; 76817; 80053; 81001; 84702; 85025; 86850; 86900; 87086; 96361; 96374; 96375; 99284; E0352; J1170; J2405; J3010; J7030

== ENCOUNTER → 2023-01-12 17:21 | Outpatient (BNVA) | payer OTHER, BC, MEDICAID, SELFPAY | PROVIDERS: PCP Family Medicine; Visit Provider Nurse Practitioner Family | DX: R50.9 Fever, unspecified (principal) | CPT/HCPCS: 87400; 87426 ==

== ENCOUNTER 2023-01-16 01:16 | Outpatient (CLI) | payer OTHER, BC, MEDICAID, SELFPAY ==
[2023-01-16 02:09] LABS: Acetaminophen 10.9 ug/mL (10-30)
== END 2023-01-16 01:17 | disposition home or self-care (01) ==
PROVIDERS: PCP Family Medicine; Visit Provider Emergency Medicine
DX: Z01.89 Encounter for other specified special examinations (principal)
CPT/HCPCS: 36415; 80307

== ENCOUNTER → 2023-03-14 11:58 | Outpatient (BNVA) | payer OTHER, BC, MEDICAID, SELFPAY | PROVIDERS: PCP Family Medicine; Visit Provider Emergency Medicine | DX: R05.9 Cough, unspecified (principal); J10.1 Influenza due to other identified influenza virus with other respiratory manifestations | CPT/HCPCS: 87400; 87426 ==

== ENCOUNTER → 2023-06-07 13:53 | Outpatient (BNVA) | payer OTHER, BC, MEDICAID, SELFPAY | PROVIDERS: PCP Family Medicine; Visit Provider Nurse Practitioner Family | DX: J02.9 Acute pharyngitis, unspecified (principal) | CPT/HCPCS: 87880 ==

== ENCOUNTER → 2024-02-07 11:46 | Outpatient (BNVA) | payer OTHER, BC, MEDICAID, SELFPAY | PROVIDERS: PCP Family Medicine; Visit Provider Nurse Practitioner Family | DX: J02.9 Acute pharyngitis, unspecified (principal) | CPT/HCPCS: 87071; 87880 ==

== ENCOUNTER → 2024-06-04 13:15 | Outpatient (BNVA) | payer SELFPAY | PROVIDERS: PCP Family Medicine; Visit Provider Emergency Medicine | DX: M79.672 Pain in left foot (principal); M77.32 Calcaneal spur, left foot | CPT/HCPCS: 73630 ==

== ENCOUNTER 2024-07-22 00:09 | Emergency (ER) | payer SELFPAY ==
[2024-07-22 00:11] VITALS: BP 164/101; PULSE 122; RESP 20; TEMP 36.6; O2SAT 95; BMI 54.7
--- NOTE | 2024-07-22 00:54 | ED_ITS ---
HPI - Skin/Abscess/Foreign Bdy General: Chief complaint: Skin/Abscess/Foreign Body Stated complaint: Alonzo sent tonsil abcess Time Seen by Provider: 07/22/24 00:37 History of Present Illness: Patient presents emerged part with concern for possible Ludewig's angina or peritonsillar abscess. She was seen in urgent care today for sore throat and dental pain. She had some swollen lymph nodes and a sore throat. She was told by urgent care to come here as she had some swelling underneath her neck that the urgent care physician was worried about possible Aleksandr's angina. Patient states that since she started the antibiotics and got the steroids the swelling has gone down. She did have some tonsillar stones but she states that she dug out herself. She does not have any pain. No fever. She states she has had swelling like this before and it goes down with antibiotics. Related Data Previous Rx's ?Medication ?Instructions ?Recorded potassium chloride 10 mEq 10 meq PO QID 30 days #120 t abs 09/08/23 tablet,extended release(part/cryst) amoxicillin 875 mg-potassium 1 tab PO BID 2 weeks #28 tabs 07/21/24 clavulanate 125 mg tablet Allergies Allergy/AdvReac Type Severity Reaction Status Date / Time aspirin Allergy ALGY-Swell Verified 07/21/24 10:16 Lip/Tongue/Throat [facility] ED PFS: Medical History Cellulitis and abscess of buttock Tonsil stone Intertrigo Hypokalemia COVID-19 Surgical History History of x 2 Family History Grandfather Cancer Pancreatic Unknown Cancer Colon - uncle Father Stroke Diabetes Social History Smoking and tobacco/nicotine status: never used tobacco/nicotine Female Reproductive History: Date of last menstrual period: 07/22/24 Physical Exam Const: COMMON NORMALS: no acute distress, average body habitus, patient oriented x3, no limitations, healthy appearing, alert and well nourished HENMT: COMMON NORMALS: normocephalic, atraumatic, hearing grossly normal bilaterally, external ears normal, EAC's normal, TM's normal bilaterally, Normal external nose present, Normal nasal mucous membranes and turbinates present, moist oral mucous membranes, oropharynx normal, dentition normal and gingiva normal HEAD & SCALP: normocephalic and atraumatic NOSE: Normal external nose present and Normal nasal mucous membranes and turbinates present EXTERNAL EAR: Yes external ears normal EXTERNAL AUDITORY CANAL: EAC's normal TYMPANIC MEMBRANE: TM's normal bilaterally Neck/C-Spine: COMMON NORMALS: no JVD Lymph: LYMPHATIC: no lymphadenopathy noted Resp: COMMON NORMALS: normal respiratory effort, No retractions, No use of accessory muscles, clear to auscultation bilaterally and percussion normal AUSCULTATION: clear to auscultation bilaterally PERCUSSION: percussion normal Cardio: COMMON NORMALS: no JVD, regular rate, regular rhythm, S1 normal heart sound present, S2 normal heart sound present, No gallops present (Cardio), No clicks present (Cardio), No murmurs present (Cardio), No rub (Cardio) and Peripheral pulses 2+ throughout RATE: regular rate RHYTHM: regular rhythm HEART SOUNDS: S1 normal heart sound present and S2 normal heart sound present PERIPHERAL PULSES: Peripheral pulses 2+ throughout Neuro: COMMON NORMALS: patient oriented x3 SENSORIUM/ORIENTATION: Yes alert Course Vital Signs: Vital signs: Vital Signs Temperature 97.9 F 07/22/24 00:11 Pulse Rate 122 H 07/22/24 00:11 Respiratory Rate 20 H 07/22/24 00:11 Blood Pressure 164/101 07/22/24 00:11 Pulse Oximetry 95 07/22/24 00:11 Oxygen Delivery Me thod Room Air 07/22/24 00:11 MDM - Skin/Abscess/Foreign Bdy Medicial Decision Making Patient sent from urgent care to evaluate for possible Aleksandr's angina or peritonsillar abscess. On physical exam she has no findings that are concerning for this. She has no erythema of the pharynx. She has no uvula deviation. She has no swelling of the posterior pharynx. She has no elevation of the tongue. She has got no tenderness underneath the tongue or on the floor the mouth. She has got no swelling or redness or tenderness underneath the chin or on the anterior neck. She has no pain. She has got no voice changes. She has got full range of motion of the neck with no trismus. Essentially has a fairly normal benign physical exam. Discussed with the patient that I do not see an indication for imaging at this time. She may have had some swollen lymph nodes that may be went down after she got a steroid shot earlier today but at this time do not see an indication for further workup. Patient states that she is very comfortable with that. 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 No radiology studies performed this visit Discharge Plan Discharge Patient Disposition: Home Clinical Impression: Encounter for medical screening examination Condition: Stable Prescriptions: No Action amoxicillin-pot clavulanate 875-125 mg tablet 1 tab PO BID 14 Days Qty: 28 0RF lidocaine-epinephrine 2 %-1:100,000 solution 2 ml SUBCUT ONCE PRN (Reason: anesthesia) Qty: 1 0RF potassium chloride 10 mEq tablet,ER particles/crystals 10 meq PO QID 30 Days Qty: 120 0RF Discharge Orders: Discharge ED (Routine); Ordered 07/22/24 Ordered By: Niels Browne Patient Instructions: Opioid Safety, Pain Management Activity Restrictions/Additional Instructions: Take medications as doing. Return to the ER if any worsening sore throat, difficulty speaking, difficulty breathing, or fever new or increased pain. Print Language: Surinamese Coding Level of Care Code ED Traffic I Manager for Sharmaine Dotson
[2024-07-22 01:22] VITALS: BP 169/138; PULSE 110; RESP 16; O2SAT 96
== END 2024-07-22 01:23 | disposition home or self-care (01) ==
PROVIDERS: Emergency Provider Emergency Medicine
DX: Z00.00 Encounter for general adult medical examination without abnormal findings (principal)
CPT/HCPCS: 99282

== ENCOUNTER 2024-07-26 09:06 | Emergency (ER) | payer SELFPAY ==
[2024-07-26 09:11] VITALS: BP 198/139; PULSE 112; RESP 20; TEMP 36.5; O2SAT 95
[2024-07-26 09:24] VITALS: BP 198/139; PULSE 107; O2SAT 96
--- NOTE | 2024-07-26 09:26 | W.ED.SKABFB ---
HPI - Skin/Abscess/Foreign Bdy General: Chief complaint: Skin/Abscess/Foreign Body Stated complaint: sore throat Time Seen by Provider: 07/26/24 09:10 Source: patient Mode of arrival: ambulatory Limitations: no limitations History of Present Illness: 39-year-old female states she has a history of dental caries has been having some pain in her right lower tooth and jaw of the last 5 days she been on Augmentin she is concerned that she may devious CT as she was told in urgent care but states she has had no difficulty swallowing she has had no muffled voice denies any fever she is trying to get into a dentist Associated symptoms: Deny chills, fever(s), nausea or vomiting Related Data Previous Rx's ?Medication ?Instructions ?Recorded potassium chloride 10 mEq 10 meq PO QID 30 days #120 tabs 09/08/23 tablet,extended release(part/cryst) amoxicillin 875 mg-potassium 1 tab PO BID 2 weeks #28 tabs 07/21/24 clavulanate 125 mg tablet Allergies Allergy/AdvReac Type Severity Reaction Status Date / Time aspirin Allergy ALGY-Swell Verified 07/21/24 10:16 Lip/Tongue/Throat Review of Systems Const: Denies: fever(s), chills, body aches or change in appetite ENMT: Reports: dental pain; Denies: throat pain Card: Denies: chest pain Resp: Denies: dyspnea GI: Denies: abdominal pain, nausea, vomiting or diarrhea Musc: Denies: neck pain or back pain Skin/Breast: Denies: rash Neuro: Denies: headache(s) PFSH ED PFSH: Medical History Cellulitis and abscess of buttock Tonsil stone Intertrigo Hypokalemia COVID-19 Surgical History History of x 2 Family History Grandfather Cancer Pancreatic Unknown Cancer Colon - uncle Father Stroke Diabetes Social History Smoking and tobacco/nicotine status: never used tobacco/nicotine Physical Exam Const: COMMON NORMALS: no acute distress, patient oriented x3 and healthy appearing HENMT: OTHER: Dental carry noted no dental abscess no trismus no signs of peritonsillar abscess or neck abscess Neck/C-Spine: COMMON NORMALS: full ROM and supple Chest: COMMONS NORMALS: normal inspection of the chest Resp: COMMON NORMALS: normal respiratory effort Extremity: COMMON NORMALS: normal to inspection and full ROM Neuro: COMMON NORMALS: patient oriented x3, moves all extremities and no focal motor deficits Psych: COMMON NORMALS: mental status grossly normal, Normal thought process present and cooperative THOUGHT PROCESS: Normal thought process present Skin: COMMON NORMALS: no rashes or lesions noted and no wounds GENERAL SKIN EXAM: no rashes or lesions noted Course Vital Signs: Vital signs: Vital Signs Temperature 97.7 F 07/26/24 09:11 Pulse Rate 107 H 07/26/24 09:24 Respiratory Rate 20 H 07/26/24 09:11 Blood Pressure 198/139 07/26/24 09:24 Pulse Oximetry 96 07/26/24 09:24 Oxygen Delivery Me thod Room Air 07/26/24 09:24 MDM - Skin/Abscess/Foreign Bdy Medicial Decision Making Patient presents here with dental pain has a dental carry no signs of trismus or abscess no signs of neck abscess she is to continue the Augmentin follow-up with a dentist. No radiology studies performed this visit Discharge Plan Discharge Patient Disposition: Home Clinical Impression: Pain, dental Condition: Stable Prescriptions: No Action amoxicillin-pot clavulanate 875-125 mg tablet 1 tab PO BID 14 Days Qty: 28 0RF lidocaine-epinephrine 2 %-1:100,000 solution 2 ml SUBCUT ONCE PRN (Reason: anesthesia) Qty: 1 0RF potassium chloride 10 mEq tablet,ER particles/crystals 10 meq PO QID 30 Days Qty: 120 0RF Discharge Orders: Discharge ED (Routine); Ordered 07/26/24 Ordered By: German Rucker Discharge Diet: Advance as tolerated Discharge Activity: Resume usual activity Patient Instructions: Toothache (ED) Print Language: Setswana Coding Level of Care Code ED Sustainability Director for Sharmaine Dotson
== END 2024-07-26 09:30 | disposition home or self-care (01) ==
PROVIDERS: Emergency Provider Emergency Medicine
DX: K08.89 Other specified disorders of teeth and supporting structures (principal)
CPT/HCPCS: 99282

== ENCOUNTER 2024-08-14 01:56 | Outpatient (CLI) | payer SELFPAY ==
--- NOTE | 2024-08-14 13:37 | CTR_ITS ---
PROCEDURE INFORMATION: Exam: CT Neck With Contrast Exam date and time: 08/14/2024 2:21 AM Age: 39 years old Clinical indication: RT sided throat pain with tonsilar swelling. History of tonsilitis. ; Additional info: R sided throat pain and swelling TECHNIQUE: Imaging protocol: Computed tomography of the neck with contrast. Radiation optimization: All CT scans at this facility use at least one of these dose optimization techniques: automated exposure control; mA and/or kV adjustment per patient size (includes targeted exams where dose is matched to clinical indication); or iterative reconstruction. Contrast material: OMNI 350; Contrast volume: 100 ml; Contrast route: INTRAVENOUS (IV); COMPARISON: No relevant prior studies available. RADIATION DOSE METRICS: Total DLP (mGy-cm): 253.61 FINDINGS: Salivary glands: Normal. Glands are normal in size. Teeth: Extensive dental disease is present. A large periapical abscess is noted around the maxillary right lateral incisor and canine teeth. Pharynx: Brady tonsils appear mildly enlarged. No tonsillar abscess is identified. A tiny cyst or fluid within a crypt involving the anterior right palatine tonsil is noted. Larynx: Unremarkable. Epiglottis is normal. Thyroid: Normal. No enlarged or calcified nodules. Trachea: Visualized trachea is unremarkable. Lungs: Unremarkable as visualized. Lymph nodes: Unremarkable. No lymphadenopathy. Bones/joints: Unremarkable. No acute fracture. Soft tissues: The left breast is partly imaged on this exam. Nodular soft tissue is noted in the superior left breast. This could represent glandular tissue, but underlying masses can not be excluded. Further evaluation is recommended. CT/CT neck w con* [id number] IMPRESSION: 1. No acute abnormality. 2. The left breast is partly imaged on this exam. Nodular soft tissue is noted in the superior left breast. This could represent glandular tissue, but underlying masses can not be excluded. Further evaluation is recommended.
== END 2024-08-14 01:57 | disposition home or self-care (01) ==
LOC: RAD 13:16
PROVIDERS: Visit Provider Emergency Medicine
DX: R07.0 Pain in throat (principal)
CPT/HCPCS: 70491

== ENCOUNTER → 2024-11-12 10:49 | Outpatient (BNVA) | payer OTHER, SELFPAY | PROVIDERS: Visit Provider Registered Nurse Neonatal Intensive Care | DX: M77.31 Calcaneal spur, right foot (principal); W19.XXXA Unspecified fall, initial encounter; X58.XXXA Exposure to other specified factors, initial encounter | CPT/HCPCS: 73610; 73630 ==

== ENCOUNTER 2025-03-01 05:19 | Emergency (ER) | payer OTHER, SELFPAY ==
[2025-03-01 05:23] VITALS: BP 177/96; PULSE 92; RESP 17; TEMP 36.4; O2SAT 95; BMI 51.6
--- OUTSIDE RECORDS SUMMARY | 2025-03-01 05:25 | XMS_ITS | Encounter Summary ---
Author Organization [facility] Address [address] [place] [address] Care Team Providers Care Water Quality Manager Name Role Phone Unavailable Primary Care Provider Unavailabl e Encounter Details Date Type Department Care Team (Latest Contact Info) Description 07/14/2004 Outpatient Historical [facility] Family Medicine- [address] [place] [address] Clemencia Aguirre MD NO ADDRESS ON FILE ACUTE CONJUNCTIVITIS NOS (Primary Dx); ALLERGIC RHINITIS NOS Social History Tobacco Use Types Packs/Day Years Used Date Smoking Tobacco: Never Assessed Comments Unknown Sex and Gender Information Value Date Recorded Sex Assigned at Not on file 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
--- OUTSIDE RECORDS SUMMARY | 2025-03-01 05:25 | XMS_ITS | Encounter Summary ---
Author Organization [facility] Address [address] [place] [address] Care Team Providers Care Database Engineer Name Role Phone Unavailable Primary Care Provider Unavailabl e Encounter Details Date Type Department Care Team (Latest Contact Info) Description 03/30/2002 Outpatient Historical [facility] Family Medicine [address] [address] Clemencia Aguirre MD NO ADDRESS ON FILE ACUTE BRONCHITIS (Primary Dx) Social History Tobacco Use Types Packs/Day Years Used Date Smoking Tobacco: Never Assessed Comments Unknown Sex and Gender Information Value Date Recorded Sex Assigned at Not on file 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
--- OUTSIDE RECORDS SUMMARY | 2025-03-01 05:25 | XMS_ITS | Encounter Summary ---
Author Organization [facility] Address [address] [place] [address] Care Team Providers Care Advertising Job Titles Name Role Phone Unavailable Primary Care Provider Unavailabl e Encounter Details Date Type Department Care Team (Latest Contact Info) Description 12/09/2006 Outpatient Historical [facility] [place] [address] [facility] [address] [place] [id number] Bonnie Cantrell, PRINTER ASSISTANT [address] [place] [id number] Unspecified Contraceptive Management (Primary Dx) Social History Tobacco Use Types Packs/Day Years Used Date Smoking Tobacco: Never Assessed Comments Unknown Sex and Gender Information Value Date Recorded Sex Assigned at Not on file 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
--- OUTSIDE RECORDS SUMMARY | 2025-03-01 05:25 | XMS_ITS | Encounter Summary ---
Author Organization [facility] Address [address] [place] [address] Care Team Providers Care Conceptor Name Role Phone Unavailable Primary Care Provider Unavailabl e Encounter Details Date Type Department Care Team (Latest Contact Info) Description 10/30/2002 Outpatient Historical [facility] Family Medicine- [place] [address] [place] [address] Nakul Paez, NO ADDRESS ON FILE DERMATITIS NOS (Primary Dx) Social History Tobacco Use Types Packs/Day Years Used Date Smoking Tobacco: Never Assessed Comments Unknown Sex and Gender Information Value Date Recorded Sex Assigned at Not on file 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
--- OUTSIDE RECORDS SUMMARY | 2025-03-01 05:25 | XMS_ITS | Encounter Summary ---
Author Organization [facility] Address [address] [place] [address] Care Team Providers Care Front End Technician Name Role Phone Unavailable Primary Care Provider Unavailabl e Encounter Details Date Type Department Care Team (Latest Contact Info) Description 05/06/2004 Outpatient Historical [facility] [place] [address] [facility] [address] [place] [phone] Bonnie Cantrell, ORTHOPTIST [address] [place] [address] ELEV BL PRES W/O HYPERTN (Primary Dx); ACUTE URI NOS Social History Tobacco Use Types Packs/Day Years Used Date Smoking Tobacco: Never Assessed Comments Unknown Sex and Gender Information Value Date Recorded Sex Assigned at Not on file 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
--- OUTSIDE RECORDS SUMMARY | 2025-03-01 05:25 | XMS_ITS | Encounter Summary ---
Author Organization [facility] Address [address] [place] [address] Care Team Providers Care Gas Fitter Apprentice Name Role Phone Unavailable Primary Care Provider Unavailabl e Encounter Details Date Type Department Care Team (Latest Contact Info) Description 05/01/2004 Outpatient Historical [facility] Medicine [place] [address] [facility] 60 [place] [phone] Bonnie Cantrell, SANITARIAN INSPECTOR [address] [place] [phone] ACUTE PHARYNGITIS (Primary Dx) Social History Tobacco Use Types Packs/Day Years Used Date Smoking Tobacco: Never Assessed Comments Unknown Sex and Gender Information Value Date Recorded Sex Assigned at Not on file 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
--- OUTSIDE RECORDS SUMMARY | 2025-03-01 05:25 | XMS_ITS | Encounter Summary ---
Author Organization [facility] Address [address] [place] [address] Care Team Providers Care Cdl Dedicated Truck Driver Name Role Phone Unavailable Primary Care Provider Unavailabl e Encounter Details Date Type Department Care Team (Latest Contact Info) Description 08/26/2006 Outpatient Historical [facility] Medicine [place] 104 [facility] 60 [place] [phone] Bonnie Cantrell, PROCESS CONTROL TECHNICIAN [address] [place] [phone] Contact Dermatitis and Other Eczema, due to Unspecified Cause (Primary Dx) Social History Tobacco Use Types Packs/Day Years Used Date Smoking Tobacco: Never Assessed Comments Unknown Sex and Gender Information Value Date Recorded Sex Assigned at Not on file Legal Sex Female 4:03 AM HSE ADVISOR Gender Identity Not on file Sexual Orientation Not on file documented as of this encounter Plan of Treatment Not on file documented as of this encounter Visit Diagnoses Diagnosis Contact dermatitis and other eczema, due to unspecified cause- Primary documented in this encounter
--- OUTSIDE RECORDS SUMMARY | 2025-03-01 05:25 | XMS_ITS | Encounter Summary ---
Author Organization [facility] Address [address] [place] [address] Care Team Providers Care Veneer Sample Maker Name Role Phone Unavailable Primary Care Provider Unavailabl e Encounter Details Date Type Department Care Team (Latest Contact Info) Description 01/20/2005 Outpatient Historical [facility] Medicine [place] 104 [facility] 60 [place] [phone] Bonnie Cantrell, MEDIA AID [address] [place] [phone] ENURESIS NOS (Primary Dx) Social History Tobacco Use Types Packs/Day Years Used Date Smoking Tobacco: Never Assessed Comments Unknown Sex and Gender Information Value Date Recorded Sex Assigned at Not on file Legal Sex Female 4:03 AM TIRE MOLDER Gender Identity Not on file Sexual Orientation Not on file documented as of this encounter Plan of Treatment Not on file documented as of this encounter Visit Diagnoses Diagnosis Unspecified urinary incontinence- Primary documented in this encounter
--- OUTSIDE RECORDS SUMMARY | 2025-03-01 05:25 | XMS_ITS | Clinical Summary ---
Author Organization [facility] Address [address] [place] [address] Care Team Providers Care Plastic Fabricator Name Role Phone Unavailable Primary Care Provider Unavailabl e Allergies Active Allergy Reactions Criticality Noted Date Comments Aspirin Swelling Low 12/26/2012 Medications No known medications Active Problems No known active problems Immunizations Immunization Administration Dates Next Due (M-M-R II/PRIORIX)(12 MO UP) MEASLES, MUMPS AND RUBELLA VIRUS VACCINE, 0.5 ML IM/SUBCUT 07/31/1992 (TDVAX)(7 YRS UP) TETANUS AN D DIPHTHERIA TOXOIDS, ADSORBED (2 LF OF TETANUS TOXOID AND 2 LF OF DIPHTHERIA TOXOID), 0.5ML (PF), IM 06/18/1999 Dt Dtp Dtap Vaccine 07/31/1992 Hepatitis A Vaccine 11/12/2003 Hepatitis B Vaccine 06/16/1999,01/20/1999,1998 IPV/OPV 07/31/1992 Family History Medical History Relation Name Comments Diabetes Father Unknown Maternal Grandfather Unknown Maternal Grandmother Other Mother dizzy spells Unknown Paternal Grandfather unknown Diabetes Paternal Grandmother Hypertension Paternal Grandmother Relation Name Status Comments Father Maternal Grandfather Maternal Grandmother Mother Paternal Grandfather Paternal Grandmother Social History Tobacco Use Types Packs/Day Years Used Date Smoking Tobacco: Never Smokeless Tobacco: Never Alcohol Use Standard Drinks/Week Comments No 0 (1 standard drink = 0.6 oz pur e alcohol) Comments No Sex and Gender Information Value Date Recorded Sex Assigned at Not on file Legal Sex Female 4:03 AM LIFE SUPPORT TECHNICIAN Gender Identity Not on file Sexual Orientation Not on file Occupation Industry Job Start Date Job End Date Not on file Not on file Not on file Not on file Last Filed Vital Signs Vital Sign Reading Time Taken Comments Blood Pressure 130/84 12/26/2012 3:14 PM CDT lar ge cuff Pulse 116 12/26/2012 3:14 PM CDT Temperature 36 C (96.8 F) 12/26/2012 3:14 PM CDT Respiratory Rate 20 12/26/2012 3:14 PM CDT Oxygen Saturation 97% 12/26/2012 3:14 PM CDT Inhaled Oxygen Concentration - - Weight 128.4 kg (283 lb) 12/26/2012 3:14 PM CDT Height 166.4 cm (5' 5.5 ) 12/26/2012 3:14 PM CDT Body Mass Index 46.38 12/26/2012 3:14 PM CDT Plan of Treatment Health Maintenance Due Date Last Done Comments DTAP/TDAP/TD VACCINES (3 - Tdap) 06/19/1999 06/18/19 00, 07/31/1992 HPV/Cotest (21-29) 01/03/2008 CERVICAL CANCER SCREENING 2017 HPV/Cotest (30-65) 2017 PAP SMEAR 2017 INFLUENZA VACCINE (#1) 2024 HEPATITIS B VACCINES Completed 06/16/1999, 01/20/1999, 11/22/1998 HPV VACCINES (No Doses Required) Completed Insurance [employer]
--- OUTSIDE RECORDS SUMMARY | 2025-03-01 05:25 | XMS_ITS | Encounter Summary ---
Author Organization [facility] Address [address] [place] [address] Care Team Providers Care Road Supervisor Of Engines Name Role Phone Unavailable Primary Care Provider Unavailabl e Encounter Details Date Type Department Care Team (Latest Contact Info) Description 01/05/2001 Outpatient Historical [facility] Medicine [address] [phone] Nakul Paez, DO NO ADDRESS ON FILE Unspecified urinary incontinence (Primary Dx) Social History Tobacco Use Types Packs/Day Years Used Date Smoking Tobacco: Never Assessed Comments Unknown Sex and Gender Information Value Date Recorded Sex Assigned at Not on file Legal Sex Female 4:03 AM RECRUITER COORDINATOR Gender Identity Not on file Sexual Orientation Not on file documented as of this encounter Plan of Treatment Not on file documented as of this encounter Visit Diagnoses Diagnosis Unspecified urinary incontinence- Primary documented in this encounter
--- OUTSIDE RECORDS SUMMARY | 2025-03-01 05:25 | XMS_ITS | Encounter Summary ---
Author Organization [facility] Address [address] [place] [address] Care Team Providers Care Message Broker Developer Name Role Phone Unavailable Primary Care Provider Unavailabl e Encounter Details Date Type Department Care Team (Latest Contact Info) Description 09/02/[address] [facility] Family Medicine- [place] [address] [place] [address] Felipe Eduardo, PA NO ADDRESS ON FILE Dermatitis due to plant (Primary Dx) Social History Tobacco Use Types Packs/Day Years Used Date Smoking Tobacco: Never Assessed Comments Unknown Sex and Gender Information Value Date Recorded Sex Assigned at Not on file Legal Sex Female 4:03 AM CRYSTALIZER OPERATOR Gender Identity Not on file Sexual Orientation Not on file documented as of this encounter Plan of Treatment Not on file documented as of this encounter Visit Diagnoses Diagnosis Dermatitis due to plant- Primary Contact dermatitis and other eczema due to plants (except food) documented in this encounter
--- OUTSIDE RECORDS SUMMARY | 2025-03-01 05:26 | XMS_ITS | Encounter Summary ---
Author Organization [facility] Address [address] [place] [address] Care Team Providers Care Reverse Engineer Name Role Phone Unavailable Primary Care Provider Unavailabl e Encounter Details Date Type Department Care Team (Latest Contact Info) Description 06/18/1999 Outpatient Historical [facility] Medicine [address] [place] [address] Aminata [place] NO ADDRESS ON FILE Abdominal pain, unspecified site (Primary Dx); Need for prophylactic vaccination with tetanus-diphtheria (Td) Social History Tobacco Use Types Packs/Day Years Used Date Smoking Tobacco: Never Assessed Comments Unknown Sex and Gender Information Value Date Recorded Sex Assigned at Not on file Legal Sex Female 4:03 AM BEAUTY CONSULTANT Gender Identity Not on file Sexual Orientation Not on file documented as of this encounter Plan of Treatment Not on file documented as of this encounter Visit Diagnoses Diagnosis Abdominal pain, unspecified site- Primary Need for prophylactic vaccination with tetanus-diphtheria (Td) documented in this encounter
--- OUTSIDE RECORDS SUMMARY | 2025-03-01 05:26 | XMS_ITS | Encounter Summary ---
Author Organization [facility] Address [address] [place] [address] Care Team Providers Care Lcac Operator Name Role Phone Unavailable Primary Care Provider Unavailabl e Encounter Details Date Type Department Care Team (Latest Contact Info) Description 04/28/2000 Outpatient Historical [facility] Medicine [address] [phone] Nakul Paez, DO NO ADDRESS ON FILE Streptococcal sore throat (Primary Dx) Social History Tobacco Use Types Packs/Day Years Used Date Smoking Tobacco: Never Assessed Comments Unknown Sex and Gender Information Value Date Recorded Sex Assigned at Not on file Legal Sex Female 4:03 AM EXPERIENCE PLANNING STRATEGIST Gender Identity Not on file Sexual Orientation Not on file documented as of this encounter Plan of Treatment Not on file documented as of this encounter Visit Diagnoses Diagnosis Streptococcal sore throat- Primary documented in this encounter
--- OUTSIDE RECORDS SUMMARY | 2025-03-01 05:26 | XMS_ITS | Encounter Summary ---
Author Organization [facility] Address [address] [place] [address] Care Team Providers Care President Name Role Phone Unavailable Primary Care Provider Unavailabl e Encounter Details Date Type Department Care Team (Latest Contact Info) Description 09/18/2005 Outpatient Historical [facility] Family Medicine- [place] [address] [place] [address] Blake Youssef NP NO ADDRESS ON FILE Acute Tonsillitis (Primary Dx); Acute Sinusitis, Unspecified Social History Tobacco Use Types Packs/Day Years Used Date Smoking Tobacco: Never Assessed Comments Unknown Sex and Gender Information Value Date Recorded Sex Assigned at Not on file Legal Sex Female 4:03 AM EDGE BRUSHER Gender Identity Not on file Sexual Orientation Not on file documented as of this encounter Plan of Treatment Not on file documented as of this encounter Visit Diagnoses Diagnosis Acute tonsillitis- Primary Acute sinusitis, unspecified documented in this encounter
--- OUTSIDE RECORDS SUMMARY | 2025-03-01 05:26 | XMS_ITS | Encounter Summary ---
Author Organization [facility] Address [address] [place] [address] Care Team Providers Care Dynamics Ax Developer Name Role Phone Unavailable Primary Care Provider Unavailabl e Encounter Details Date Type Department Care Team (Latest Contact Info) Description 11/13/1999 Outpatient Historical [facility] Medicine [address] [place] [address] Aminata [place] NO ADDRESS ON FILE Urinary tract infection, site not specified (Primary Dx); Other, multiple, and unspecified sites, insect bite, nonvenomous, without mention of infection(919.4) Social History Tobacco Use Types Packs/Day Years Used Date Smoking Tobacco: Never Assessed Comments Unknown Sex and Gender Information Value Date Recorded Sex Assigned at Not on file Legal Sex Female 4:03 AM HOME CARE AND HOME HEALTH AIDES TEACHER Gender Identity Not on file Sexual Orientation Not on file documented as of this encounter Plan of Treatment Not on file documented as of this encounter Visit Diagnoses Diagnosis Urinary tract infection, site not specified- Primary Other, multiple, and unspecified sites, insect bite, nonvenomous, without mention of infection(919.4) Other, multiple, and unspecified sites, insect bite, nonvenomous, without mention of infection documented in this encounter
--- OUTSIDE RECORDS SUMMARY | 2025-03-01 05:26 | XMS_ITS | Encounter Summary ---
Author Organization [facility] Address [address] [place] [address] Care Team Providers Care Mangle Press Catcher Name Role Phone Unavailable Primary Care Provider Unavailabl e Encounter Details Date Type Department Care Team (Latest Contact Info) Description 09/21/2005 Outpatient Historical [facility] Family Medicine- [place] [place] [address] Blake Youssef NP NO ADDRESS ON FILE Acute Tonsillitis (Primary Dx); Hypertrophy Tonsils; Hypopotassemia Social History Tobacco Use Types Packs/Day Years Used Date Smoking Tobacco: Never Assessed Comments Unknown Sex and Gender Information Value Date Recorded Sex Assigned at Not on file Legal Sex Female 4:03 AM DEALER RELATIONSHIP MANAGER Gender Identity Not on file Sexual Orientation Not on file documented as of this encounter Plan of Treatment Not on file documented as of this encounter Visit Diagnoses Diagnosis Acute tonsillitis- Primary Hypertrophy tonsils Hypertrophy of tonsils alone Hypopotassemia documented in this encounter
--- OUTSIDE RECORDS SUMMARY | 2025-03-01 05:26 | XMS_ITS | Encounter Summary ---
Author Organization [facility] Address [address] [place] [address] Care Team Providers Care Design Technology Professor Name Role Phone Unavailable Primary Care Provider Unavailabl e Encounter Details Date Type Department Care Team (Latest Contact Info) Description 10/20/2005 Outpatient Historical [facility] Family Medicine- [place] [address] [place] [address] Felipe Eduardo, PA NO ADDRESS ON FILE Acute Pharyngitis (Primary Dx); Acute Tonsillitis Social History Tobacco Use Types Packs/Day Years Used Date Smoking Tobacco: Never Assessed Comments Unknown Sex and Gender Information Value Date Recorded Sex Assigned at Not on file Legal Sex Female 4:03 AM RELIGIOUS EDUCATION TEACHER Gender Identity Not on file Sexual Orientation Not on file documented as of this encounter Plan of Treatment Not on file documented as of this encounter Visit Diagnoses Diagnosis Acute pharyngitis- Primary Acute tonsillitis documented in this encounter
--- OUTSIDE RECORDS SUMMARY | 2025-03-01 05:26 | XMS_ITS | Encounter Summary ---
Author Organization [facility] Address [address] [place] [address] Care Team Providers Care Membership Sales Representative Name Role Phone Unavailable Primary Care Provider Unavailabl e Encounter Details Date Type Department Care Team (Latest Contact Info) Description 03/11/2006 Outpatient Historical [facility] Medicine [place] [address] [facility] 60 [place] [address] Bonnie Cantrell, PUNCHING MACHINE OPERATOR [address] [place] [address] Examination or Test, Positive Result (Primary Dx) Social History Tobacco Use Types Packs/Day Years Used Date Smoking Tobacco: Never Assessed Comments Unknown Sex and Gender Information Value Date Recorded Sex Assigned at Not on file Legal Sex Female 4:03 AM OVERNIGHT CAREGIVER Gender Identity Not on file Sexual Orientation Not on file documented as of this encounter Plan of Treatment Not on file documented as of this encounter Visit Diagnoses Diagnosis examination or test, positive result- Primary documented in this encounter
--- OUTSIDE RECORDS SUMMARY | 2025-03-01 05:26 | XMS_ITS | Encounter Summary ---
Author Organization [facility] Address [address] [place] [address] Care Team Providers Care Fabric Worker Supervisor Name Role Phone Unavailable Primary Care Provider Unavailabl e Encounter Details Date Type Department Care Team (Latest Contact Info) Description 11/29/1998 Outpatient Historical [facility] Family Medicine [address] [phone] Nakul Paez, NO ADDRESS ON FILE Urinary tract infection, site not specified (Primary Dx) Social History Tobacco Use Types Packs/Day Years Used Date Smoking Tobacco: Never Assessed Comments Unknown Sex and Gender Information Value Date Recorded Sex Assigned at Not on file Legal Sex Female 4:03 AM COOK TORTILLA Gender Identity Not on file Sexual Orientation Not on file documented as of this encounter Plan of Treatment Not on file documented as of this encounter Visit Diagnoses Diagnosis Urinary tract infection, site not specified- Primary documented in this encounter
--- OUTSIDE RECORDS SUMMARY | 2025-03-01 05:26 | XMS_ITS | Encounter Summary ---
Author Organization [facility] Address [address] [place] [address] Care Team Providers Care Painter Drum Name Role Phone Unavailable Primary Care Provider Unavailabl e Encounter Details Date Type Department Care Team (Latest Contact Info) Description 05/08/2005 Outpatient Historical [facility] Medicine [address] [phone] Blake Youssef NP NO ADDRESS ON FILE ACUTE PHARYNGITIS (Primary Dx); ACUTE SINUSITIS NOS Social History Tobacco Use Types Packs/Day Years Used Date Smoking Tobacco: Never Assessed Comments Unknown Sex and Gender Information Value Date Recorded Sex Assigned at Not on file Legal Sex Female 4:03 AM PRIVATE BRANCH EXCHANGE SERVICE ADVISER Gender Identity Not on file Sexual Orientation Not on file documented as of this encounter Plan of Treatment Not on file documented as of this encounter Visit Diagnoses Diagnosis Acute pharyngitis- Primary Acute sinusitis, unspecified documented in this encounter
--- OUTSIDE RECORDS SUMMARY | 2025-03-01 05:26 | XMS_ITS | Clinical Summary ---
Author Organization [facility] Address [address] [place] [address] Care Team Providers Care Spirits Model Name Role Phone Unavailable Primary Care Provider Unavailabl e Medications potassium chloride (MICRO-K) 10 MEQ CR capsule Take 2 capsules (20 mEq total) by mouth 1 (one) time each day 60 capsule 6 08/18/2018 Active Magnesium 200 MG tablet Take 1 tablet by mouth 1 (one) time each day 30 each 6 08/18/2018 Active aMILoride (MIDAMOR) 5 MG tablet Take 2 tablets (10 mg total) by mouth 2 (two) times a day 120 tablet 6 08/18/2018 Active Family History Medical History Relation Comments Diabetes Father 2 Hypertension Father 2 Relation Status Comments Father 1 Alive Father 2 Social History Tobacco Use Types Packs/Day Years Used Date Smoking Tobacco: Never Comments Unknown Sex and Gender Information Value Date Recorded Sex Assigned at Not on file Legal Sex Female 12:45 PM EST Gender Identity Not on file Sexual Orientation Not on file Last Filed Vital Signs Vital Sign Reading Time Taken Comments Blood Pressure 106/80 02/01/2018 11:[address]ACHINERY INSPECTOR Pulse 108 02/01/2018 11:[address]ACHINERY INSPECTOR Temperature - - Respiratory Rate - - Oxygen Saturation - - Inhaled Oxygen Concentration - - Weight 146 kg (322 lb 11.2 oz) 02/01/2018 11:[address]ACHINERY INSPECTOR Height 167.6 cm (5' 6 ) 02/01/2018 11:[address]ACHINERY INSPECTOR Body Mass Index 52.09 02/01/2018 11:[address]ACHINERY INSPECTOR Plan of Treatment Health Maintenance Due Date Last Done Comments Influenza Vaccine (#1) 2024 Hepatitis B Vaccine Completed 06/16/1999, 01/20/1999, 11/22/1998 Pneumococcal Vaccine: Peds ( 0 to 5 Years) and At-Risk Patients (6 to 49 Years) Aged Out No longer eligi ble based on patient's age to complete this topic
--- OUTSIDE RECORDS SUMMARY | 2025-03-01 05:26 | XMS_ITS | Encounter Summary ---
Author Organization [facility] Address [address] [place] [address] Care Team Providers Care Porcelain Finisher Name Role Phone Unavailable Primary Care Provider Unavailabl e Encounter Details Date Type Department Care Team (Latest Contact Info) Description 12/31/1998 Outpatient Historical [facility] Medicine [address] [phone] Nakul Paez, DO NO ADDRESS ON FILE Unspecified urinary incontinence (Primary Dx) Social History Tobacco Use Types Packs/Day Years Used Date Smoking Tobacco: Never Assessed Comments Unknown Sex and Gender Information Value Date Recorded Sex Assigned at Not on file Legal Sex Female 4:03 AM CRIMINAL ATTORNEY Gender Identity Not on file Sexual Orientation Not on file documented as of this encounter Plan of Treatment Not on file documented as of this encounter Visit Diagnoses Diagnosis Unspecified urinary incontinence- Primary documented in this encounter
--- NOTE | 2025-03-01 05:34 | W.ED.DENTAL ---
HPI - Dental/Oral General: Chief complaint: Dental/Oral Stated complaint: Mouth Pain Time Seen by Provider: 03/01/25 05:26 History of Present Illness: Patient is a 40-year-old female with no past medical history who presents to the ED with dental pain. Front left tooth has been bothering her, she has been alternating ibuprofen and Tylenol, no significant facial swelling, no fevers, no difficulties breathing or eating. Related Data Previous Rx's ?Medication ?Instructions ?Recorded potassium chloride 10 mEq 10 meq PO QID 30 days #120 tabs 09/08/23 tablet,extended release(part/cryst) hydrocodone 5 mg-acetaminophen 325 1 tab PO Q8H PRN pain #10 tabs 03/01/25 mg tablet Allergies Allergy/AdvReac Type Severity Reaction Status Date / Time aspirin Allergy ALGY-Swell Verified 11/12/24 10:45 Lip/Tongue/Throat Review of Systems General: Reports: 10 or more systems reviewed and unremarkable except in HPI and below PFSH ED PFSH: Medical History (Updated 03/01/25 @ 05:31 by Jose Thurston DO) Cellulitis and abscess of buttock Tonsil stone Intertrigo Hypokalemia COVID-19 Surgical History History of x 2 Family History Grandfather Cancer Pancreatic Unknown Cancer Colon - uncle Father Stroke Diabetes Social History Smoking and tobacco/nicotine status: never used tobacco/nicotine Physical Exam Narrative: EXAM NARRATIVE: Tooth 11 with mild decay and mild tender to the touch, mild gingivitis but no severe swelling or fluctuance, no pooling of secretions, airway widely patent. Overall well-appearing, vital stable. Course Vital Signs: Vital signs: Vital Signs Temperature 97.5 F L 03/01/25 05:23 Pulse Rate 92 03/01/25 05:23 Respiratory Rate 17 03/01/25 05:23 Blood Pressure 177/96 03/01/25 05:23 Pulse Oximetry 95 03/01/25 05:23 Oxygen Delivery Me thod Room Air 03/01/25 05:23 MDM - Dental/Oral Medical Decision Making -ddx: Dental pain, cavity, gingivitis, abscess - Patient with localized tooth infection, has been alternating ibuprofen and Tylenol at home, no significant facial swelling, no systemic signs of infection, no signs of upper airway obstruction, already on clindamycin, will give shot of Toradol and bridging prescription of hydrocodone until she can follow-up with dentist, strict return precautions given, patient discharged. No radiology studies performed this visit Discharge Plan Discharge Patient Disposition: Home Clinical Impression: Pain, dental Condition: Stable Prescriptions: New hydrocodone-acetaminophen 5-325 mg tablet 1 tab PO Q8H PRN (Reason: pain) Qty: 10 0RF No Action lidocaine-epinephrine 2 %-1:100,000 solution 2 ml SUBCUT ONCE PRN (Reason: anesthesia) Qty: 1 0RF potassium chloride 10 mEq tablet,ER particles/crystals 10 meq PO QID 30 Days Qty: 120 0RF Discharge Orders: Discharge ED (Routine); Ordered 03/01/25 Ordered By: Jose Thurston Referrals: Kenyatta Middleton DO [Primary Care Provider, Family Practice] Patient Instructions: Opioid Safety, Pain Management, Patient Portal & Gage Instructions Print Language: Montenegrin Coding Level of Care Code ED Ophthalmic Surgical Assistant for Sharmaine Dotson
[2025-03-01] MEDS: HYDROcodone-acetaminophen 5-325 mg Tablet 1 TAB PO (05:38)
[2025-03-01 05:45] VITALS: BP 153/99; PULSE 100; O2SAT 95
== END 2025-03-01 05:44 | disposition home or self-care (01) ==
PROVIDERS: Emergency Provider Student in an Organized Health Care Education/Training Program; PCP Family Medicine
DX: K08.89 Other specified disorders of teeth and supporting structures (principal)
CPT/HCPCS: 96372; 99284; J1885; J9999